=== PATIENT | female | born 1995 | race Caucasian/White ===

== ENCOUNTER 2023-08-17 00:39 | Outpatient (CLI) | payer MEDICAID, SELFPAY ==
[2023-08-17 01:15] VITALS: BP 133/79; PULSE 84
[2023-08-17 01:30] VITALS: RESP 16; TEMP 36.9
[2023-08-17 02:51] VITALS: BP 103/68; PULSE 75
[2023-08-17] MEDS: ACETAMINOPHEN 500 MG TABLET 1000 MG PO (02:56)
[2023-08-17] MEDS: hydrOXYzine pamoate 25 MG CAPSULE 100 MG PO (03:39)
--- NOTE | 2023-08-17 04:04 | PC.OBNST ---
NST Note NST Note Start: 08/17/23 00:48 Freq: ONCE Status: Active Protocol: Document 08/17/23 04:03 AM (Rec: 08/17/23 04:04 AM [id number]) NST Note 1 Para (# of births) 0 EDC 08/27/23 Gestational Age In Weeks & Days 38 Weeks & 4 Days Patient Presented with Complaint(s) of Contractions/cramping Reactive Yes Appropriate for Gestational Age Yes RN AMiner RNC Date 08/17/23 Reactive Yes Appropriate for Gestational Age Yes RN DCarlson RN Date 08/17/23 OB NST charge Yes Complete NST Note via Write Note Yes The provider's electronic signature indicates the NST is reactive/appropriate for gestational age. *Note to provider: If an addendum is required, open the patient's chart and click on the note under the Nurse/Allied Health tab.
--- NOTE | 2023-08-19 11:15 | PC.OBNST ---
NST Note NST Note Start: 08/17/23 00:48 Freq: ONCE Status: Discharge Protocol: Document 08/17/23 04:03 AM (Rec: 08/17/23 04:04 AM [id number]) NST Note 1 Para (# of births) 0 EDC 08/27/23 Gestational Age In Weeks & Days 38 Weeks & 4 Days Patient Presented with Complaint(s) of Contractions/cramping Reactive Yes Appropriate for Gestational Age Yes RN AMiner RNC Date 08/17/23 Reactive Yes Appropriate for Gestational Age Yes RN DCarlson RN Date 08/17/23 OB NST charge Yes Complete NST Note via Write Note Yes The provider's electronic signature indicates the NST is reactive/appropriate for gestational age. *Note to provider: If an addendum is required, open the patient's chart and click on the note under the Nurse/Allied Health tab.
== END 2023-08-17 03:45 | disposition home or self-care (01) ==
LOC: OB OUT 00:40 → OB 00:41
PROVIDERS: PCP Physician Assistant; Visit Provider Family Medicine
DX: O47.1 False labor at or after 37 completed weeks of gestation (principal); Z3A.38 38 weeks gestation of pregnancy
CPT/HCPCS: 59025; G0463; A9270

== ENCOUNTER 2023-08-19 00:36 | Inpatient (IN) | payer MEDICAID, SELFPAY ==
[2023-08-19] VITALS (19 sets, daily range): BP systolic 106–140; BP diastolic 67–85; PULSE 68–95; RESP 16–17; TEMP 36.4–36.9; O2SAT 96–100
[2023-08-19] MEDS: OXYTOCIN 30 unit/500 ML in NS 30 UNIT/500 ML BAG 300 UNIT IVPB (01:57)
[2023-08-19] MEDS: LIDOCAINE 1 % PF 30 ML INJECTION (01:58)
--- NOTE | 2023-08-19 02:25 | P.OBCN_ITS ---
OB - CN: HPI Date of Consult Time Seen by Provider: : Date Seen: 08/19/23 Patient: Esa Patient Consult date: 08/19/23 Requesting Physician: Justine Mendoza DO Primary Care Provider: COLE Loving Consult Narrative Narrative: Marcia is a 28 year old G 1 P 0 at 38.6 weeks gestation that was admitted to the [facility] on 08/19/23 for spontaneous labor. She had a spontaneous vaginal delivery complicated by a 4th degree laceration. I was consulted for laceration repair. History History 1 Elective abortions Para 1 Spontaneous abortions Hx # Term Pregnancies Ectopic pregnancies Hx # Pregnancies Multiple births Number of Living Children 0 Labs GBS status: negative OB Labs: Lab Assessment Start: 08/19/23 00:06 Freq: ONCE Status: Complete Protocol: PC.OBGBS Activity Type Activity Date Activity User E-sign Co-sign Detail Recorded Client Recorded Date Recorded By Document 08/19/23 00:43 MMT [id number] 08/19/23 00:48 MMT 08/19/23 00:43 Lab Assessment GBS Status negative GBS Additional Criteria None Is Patient Allergic to Penicillin? No Treatment Required OK Are Labs Available Yes Maternal Blood Type A Maternal RH Factor Negative Evaluate Maternal Rubella Immune Status Immune Hepatitis B Surface Antigen Negative Maternal HIV Status Negative Maternal Syphillis (RPR) Status Negative [facility] Medical History (Updated 08/19/23 @ 02:57 by Justine Mendoza DO) Vitamin D deficiency ?E55.9 - Vitamin D deficiency, unspecified (ICD-10) Wernicke encephalopathy ?E51.2 - Wernicke's encephalopathy (ICD-10) Thiamine deficiency ?E51.9 - Thiamine deficiency, unspecified (ICD-10) PCOS (polycystic ovarian syndrome) ?E28.2 - Polycystic ovarian syndrome (ICD-10) NAFLD (nonalcoholic fatty liver disease) ?K76.0 - Fatty (change of) liver, not elsewhere classified (ICD-10) Reflux gastritis ?K29.60 - Other gastritis without bleeding (ICD-10) Surgical History (Updated 08/19/23 @ 02:52 by Justine Mendoza DO) Hx laparoscopic cholecystectomy ?Z90.49 - Acquired absence of other specified parts of digestive tract (ICD- 10) H/O gastric bypass ?Z98.84 - Bariatric surgery status (ICD-10) Social History What is your current living situation?: I presently have a place to live Problems where you live: no known problems In the past 12 months, utilities in danger of being shut off: no In past 12 months, lack of transportation kept you from medical appts, meetings, work, or getting things needed for daily living: no In the past 12 mos, have been you worried that your food would run out before you had money to buy more?: never true In the past 12 mos, the food you bought just didn't last and you didn't have money to buy more?: never true Smoking Status: Never smoker How often does anyone, including family, friends and others, physically hurt you : never How often does anyone, including family, friends and others, insult or talk down to you: never How often does anyone, including family, friends and others, threaten you with harm: never How often does anyone, including family, friends and others, scream or curse at you: never Meds Home Medications and Allergies Home Medications Medication Instructions Recorded Confirmed Type calcium citrate malate-vitamin D3 3 tab PO DAILY 08/17/23 08/17/23 History 500 mg-200 unit tablet ferrous sulfate 325 mg (65 mg 325 mg PO DAILY 08/17/23 08/17/23 History iron) tablet (Feosol) multivitamin no.47-iron fum 27 1 cap PO DAILY 08/17/23 08/17/23 History mg-folate no.1 1 mg-dha 300 mg capsule (PNV-DHA) vitamin B12 1,000 mcg-folic acid 1 tab sublingual DAILY 08/17/23 08/17/23 History 400 mcg sublingual tablet Allergies Allergy/AdvReac Type Severity Reaction Status Date / Time ibuprofen Allergy Unknown Verified 07/14/22 18:51 OB - H&P: Exam Physical Exam: Vital signs: Temp Pulse BP Pulse Ox 98.2 F 76 140/75 H 100 08/19/23 00:16 08/19/23 02:19 08/19/23 02:19 08/19/23 01:38 Narrative: Physical exam: General: No acute distress. Nursing Psych: Alert and oriented x3, full affect HEENT: Normocephalic, atraumatic Lungs: Unlabored breathing Neuro: No focal deficit. Mentating appropriately Pelvic exam: Bedside exam showed obvious 4th degree laceration extending appro ximately 4-5 cm into the rectum. Stool present in the wound. Minimal bleeding noted. Deferred rest of exam to the OR. OB - CN: A/P Assessment and Plan (1) Fourth degree laceration of perineum during delivery, : Status: Acute Plan - 4th degree laceration after spontaneous vaginal delivery - Counseled patient on her laceration, postoperative course and expectations. Advised strict bowel regimen, avoidance of constipation/diarrhea and chronic cough to reduce potential complications such wound infection, breakdown, hematoma or incomplete healing. These complications can lead to morbidity such as pain, fistula, and fecal/anal incontinence. - Will repair in the OR as copious amount irrigation and extensive repair required. - Preoperative antibiotic: 2g of cefoxitin - Postoperative care recommendations - Bowel regimen: Miralax QD, Senna BID, Simethicone Q4H PRN. Continue bowel regimen for 6-8 weeks depending level of constipation. Avoid straining, constipation or diarrhea. Avoid siting on toilet for more than 10 mins. Patient has chronic anemia. Will treat with IV iron to avoid constipation from PO iron. - Wound care: recommend rinsing with warm water using astrid-care bottle and wiping with unscented wet wipes/clean towel after voids and bowel movements. Pat clean and dry. Do not rub. Avoid using toilet paper that can break off and stick to wound. Patient is so she will be hypoestrogenic. She can apply Premarin cream 2x per week at night vaginal and on perineal wound. - Pain: 1000 mg of acetaminophen q.6 hours PRN, oxycodone 5 mg q.6 hours PRN, Dermoplast spray PRN, perineal ice pack PRN. Sitz baths BID x 2 weeks, then PRN. Patient canno take NSAIDs due to gastric bypass surgery.
--- NOTE | 2023-08-19 02:26 | P.GYNPRC_ITS ---
Procedure Note Time Seen by Provider: : Date of procedure: 08/19/23 Pre-op diagnosis: Fourth degree laceration after spontaneous vaginal delivery Post-op diagnosis: same Procedure: 1. Exam under anesthesia 2. Fourth degree laceration repair Anesthesia: regional (Spinal) Complications: None Surgeon: Iliana Blount MD Estimated blood loss (mL): 50 Urine Output (mL): 50 Pathology: none sent Condition: stable Disposition: floor Findings: Fourth degree laceration was 5 cm. Second-degree laceration was approximately 7 cm. Normal cervix without laceration. Fundus was firm and 2 cm below the umbilicus. Rectal exam performed at the start of the procedure and no other occult fourth degree laceration identified. Procedure Description: Prophylactic antibiotic, 2g of cefoxitin, was given before patient was taken to OR. After arrival to the operating room patient was placed in the dorsal l ithotomy position after administration of spinal anesthesia. 2.5 L of sterile normal saline irrigation was used to clean stool out of the rectum and vaginal laceration prior to prepping. Rectal exam performed to confirm tear and to assess for any other occult injuries. The rectal mucosa was torn about 5 cm, the internal and external anal sphincter were identified and noted to be completely avulsed. Operators? gloves changed and vagina prepped with betadine and she was draped in a sterile manner. Straight catheterization was used to drain her bladder. Attention was then turned towards the repair. Repair of the mucosa is performed 1st with 3-0 Monocryl in a continuous running manner. After the mucosa has been reapproximated, digital rectal exam performed to ensure adequate strength and integrity of the repair. Telephone Sales Agent's gloves changed. All instruments used for the repair of the mucosa were replaced with new sterile instruments. Next the identification and repair of the internal anal sphincter was performed via end-to-end reanastomosis using 3-0 PDS in a continuous running manner. Another rectal exam was performed to reassured integrity and strength of the repair. Telephone Sales Agent's gloves changed. Attention was then turned to the anal sphincter. Aimee clamps were placed on the disrupted edges, and 0 vicryl used to reapproximate the sphincter in an interrupted fashion with four stitches. Before these were tied down a rectal exam confirmed no retained sutures in the rectum and good sphincter tone with tightening of the sutures. Additional deep stitches were placed proximal to the sphincter to provide for a more substantial perineal body. The remainder of the tear was repaired as a typical 2nd degree laceration with a running 2-0 vicryl stitch. Vaginal packing with Premarin placed at the end of the procedure. This is to be removed in 12 hours. Excellent hemostasis noted. The patient tolerated the procedure well. Sponge, lap and instruments counts were correct at the end of the procedure. Surgical debris performed. Following the repair, she was counseled on the procedure and precautions for return to care. Strong bowel regimen instructions reviewed. Mom and baby doing well in recovery.
[2023-08-19] MEDS: LACTATED RINGERS 1000 ML 1,000 ML 125 ML IV (02:30)
--- NOTE | 2023-08-19 02:36 | PM.OBHPLI ---
OB - H&P: HPI Labor/Induction History of Present Illness Time Seen by Provider: 00:55 Date Seen: 08/19/23 Chief Complaint: The patient is a 28 year old 1 para 0 at 38 6/7 weeks gestation by LMP c/w 8wkUS, who presents with contractions Chief complaint: Maternity : 1 Para: 0 Date of last menstrual period: 11/20/22 Estimated date of delivery: 08/27/23 Gestational age based on last menstrual period: 38 Narrative: Marcia Martínez is a 28 year old 1 para 0 at 38 6/7 weeks gestation by LMP c/w 8wkUS, who presents with contractions in active labor. Pt reports ctxs started at around 9:30pm. She presented at 0011 and RN checked shortly after arrival and found to be 8cm. No LOF. pt was 5cm and not lisseth this morning at appointment. Besides current labor, pt reports feeling well. no recent illness. 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 Additional followup US 06/10/23 with clubbed feet and mild polyhydramnios. Had US's for HORTENSIA [id number] since then with normal amniotic fluid and no further polyhydramnios including normal HORTENSIA this morning. complications comment: see above US note Medical complications: other (history gastric bypass, had gastric bypass labs each trimester and growth US ) Labs Blood type: A (-) negative Rubella: immune RPR/VDLR: nonreactive GBS status: negative HBsAG: negative Meds Home Medications and Allergies Home Medications Medication Instructions Recorded Confirmed Type calcium citrate malate-vitamin D3 3 tab PO DAILY 08/17/23 08/17/23 History 500 mg-200 unit tablet ferrous sulfate 325 mg (65 mg 325 mg PO DAILY 08/17/23 08/17/23 History iron) tablet (Feosol) multivitamin no.47-iron fum 27 1 cap PO DAILY 08/17/23 08/17/23 History mg-folate no.1 1 mg-dha 300 mg capsule (PNV-DHA) vitamin B12 1,000 mcg-folic acid 1 tab sublingual DAILY 08/17/23 08/17/23 History 400 mcg sublingual tablet Allergies Allergy/AdvReac Type Severity Reaction Status Date / Time ibuprofen Allergy Unknown Verified 07/14/22 18:51 OB - H&P: Exam Physical Exam: Vital signs: Temp Pulse BP Pulse Ox 98.2 F 72 135/81 100 08/19/23 00:16 08/19/23 02:34 08/19/23 02:34 08/19/23 01:38 Constitutional: Constitutional: no acute distress (comfortable between contractions, breathing through contractions) Routine HEENT Exam: Head: Present normal inspection Eye: Present normal appearance ENT: Present mucous membranes moist Routine Respiratory Exam: Respiratory: Present CTA bilaterally Routine Cardiovascular Exam: Cardiovascular: RRR Routine Abdominal Exam: Comments: gravid Detailed Labor and Delivery Exam: Patient Gravid: Yes Dilation (cm): 9 Effacement (%): 100 Cervix position: anterior Consistency: soft Contraction frequency (min): 2 Fetus (Single): Station: 0 Amniotic Membrane Status: intact Heart Rate Baseline: 150 Monitor Accelerations: Present Monitor Decelerations: Early Jail Variability: Moderate (6-25) OB - Problem Based A/P Additional Plan (1) Term : Status: Acute (2) Active labor: Status: Acute Plan On my arrival, FHT reactive. As we are talking about labor and what to expect, has decel after contraction. RN's turn pt to left side and we are unable to find FHT's. I checked pt and she is 9.5cm, intact with amniotic sac tight to head. scalp monitor placed causing AROM without significant fluid return. Scalp monitor did not draft roller picker FHT well so RN continued find with external monitor and was able to get FHT's which were in normal range and double checked and not maternal. Known GBS negative. continue with expectant mgmt. Delivery/Labor/Induction Plan Plan: expectant management
[2023-08-19] MEDS: cefOXitin 2 GM in 0.9 % SODIUM CHLORIDE Mini-bag 100 ML IVPB (02:45)
--- NOTE | 2023-08-19 03:02 | W.PM.VAGD1_ITS ---
Procedure Delivery date: 08/19/23 Procedure Done: Global Procedure Details: The patient is a 28 year-old admitted on 08/19/23 at 38 Weeks, 7 Days gestation for active labor.? Cervical exam on admission was 8 cm/100 % effaced/0 station with membranes intact in vertex presentation.? Contractions were every 2-3 minutes.? heart rate demonstrated baseline 150 bpm with moderate variability, + accelerations, +early decelerations; a category 1 tracing.? AROM occurred at 0101 when scalp placed without significant fluid return. ? Labor Analgesia:? None ? Pitocin:? No ? Labor onset:? 2129 on 08/18/23 ? Complete:? 0123 ? Pushing:? 0140 ? heart tones during second stage were 150's, moderate variability with decels with/after pushing down to 70-90's with return to 150's between contractions. ? At 0140 a viable male infant delivered in vertex presentation over intact perineum via spontaneous vaginal delivery.? Infant was placed on maternal abdomen.? Cord was clamped and cut after a 60 second delay.? Nose and mouth were bulb suctioned.? weight 7#15oz? 8 at 1 minute and 9 at 5 minutes.? Shoulder dystocia: no.? Nuchal cord: no. ? Active management of placenta performed. Placenta delivered spontaneously and complete at 0145 with a 3 vessel cord. P lacenta was meconium stained. ? Mother and infant were stable after delivery. ? Lacerations:? 4th degree, OB surgeon Dr Blount called in to repair is currently repairing in OR. See her note for details. ? Blood loss: 200 mL. Blood loss measurement type: EBL ? 1 Sponge was packed in vagina by Dr Blount to take to OR, remaining sponge and needles counts are correct from delivery Procedures Operation Date: 08/19/23 03:10 Actual Procedure Side Surgeon p Vaginal Laceration Repair Iliana Doug Blount MD Route of delivery: Laceration description: Perineal - 4th Degree Estimated blood loss (mL): 200 [place] Infant Gender: Male presentation: vertex Placental Delivery Description: Spontaneous Cord Description: 3 Vessels
--- NOTE | 2023-08-19 03:31 | W.ANESCHARGE ---
Anesthesia Charges Start Date/Time Anesthesia Start Date: 08/19/23 Anesthesia Start Time: 02:56 Stop Date/Time Anesthesia Stop Date: 08/19/23 Anesthesia Stop Time: 04:52 Summary Emergency: SET UP [employer] MACHINES
[2023-08-19] MEDS: LIDOCAINE 1% MDV 20 ML INJECTION (04:40)
--- NOTE | 2023-08-19 04:52 | SUR.OPER ---
OB RN AWARE OF VAGINAL PACKING BEFORE THE PATIENT LEFT THE OR.
[2023-08-19] MEDS: ACETAMINOPHEN 500 MG TABLET 1000 MG PO ×2 (06:33→17:56)
[2023-08-19] MEDS: SENNOSIDES 1 TAB TABLET PO ×2 (09:10→20:24)
[2023-08-19] MEDS: polyethylene glycoL 3350 17 GM PACK PO (09:10)
--- NOTE | 2023-08-19 15:54 | PM.OBPNVD1 ---
OB - PN:Subj Subjective Time Seen by Provider: 10:45 Date Seen: 08/19/23 Interval history: I received a request to come see the patient because when she went to the bathroom, approximately 6 in of the vaginal packing came out of the vagina. She was otherwise doing well. She denied excessive vaginal bleeding or pain. OB - PN: Obj Exam Physical Exam: Vital signs: Temp Pulse Resp BP Pulse Ox O2 Del Method 98.4 F 82 16 106/71 96 Room Air 08/19/23 15:37 08/19/23 15:37 08/19/23 15:37 08/19/23 15:37 08/19/23 15:37 08/19/23 15:37 Narrative: Examination, I found approximately 6 in of the vaginal packing material to be extruding from the vagina. With patient's verbal consent, the vaginal packing was removed. There was no active bleeding noted following the removal. Urinary Catheter Management: Straight: Cath placed during this visit: yes Urethral indwelling: No Insertion date: 08/19/23 Insertion time: 04:00 OB - PN: A/P Delivery Assessment and Plan (1) Fourth degree laceration of perineum during delivery, : Status: Acute Plan Vaginal packing removed without difficulty. Recommend twice daily stool softener. Plan day: 0 Plan: routine care
[2023-08-20 02:15] VITALS: BP 131/85; PULSE 76; RESP 16; TEMP 36.6; O2SAT 98
[2023-08-20 06:10] LABS: Hemoglobin* 11.9 gm/dL (12.0-16.0)
--- NOTE | 2023-08-20 08:07 | PM.OBPNVD1 ---
OB - PN:Subj Subjective Time Seen by Provider: 08:07 Date Seen: 08/20/23 Interval history: pt seen in routine rounds. Doing well. ambulating well. reports no pain. no needing oxycodone for last 24 hours. only taking tylenol. Voiding. tolerating orals. has not had bm. received miralax yesterday morning, due this morning again. on senna bid as well. Lochia scant. Has decided to bottlefeed. Would like to go home today. Patient comments OB post-: no complaints, pain well controlled and tolerating diet status: bottle and doing well feeding status: exclusively bottle feeding OB - PN: Obj Exam Physical Exam: Vital signs: Temp Pulse Resp BP Pulse Ox O2 Del Method 97.8 F 76 16 131/85 98 Room Air 08/20/23 02:15 08/20/23 02:15 08/20/23 02:15 08/20/23 02:15 08/20/23 02:15 08/20/23 02:15 Constitutional: Constitutional: no acute distress Routine HEENT Exam: Head: Present normal inspection Eye: Present normal appearance ENT: Present mucous membranes moist Routine Abdominal Exam: Fundus: Present firm Urinary Catheter Management: Straight: Cath placed during this visit: yes Urethral indwelling: No Insertion date: 08/19/23 Insertion time: 04:00 OB - PN: Obj Data Labs Labs: Laboratory Results - last 24 hr 08/20/23 06:00 Hgb 11.9 L OB - PN: A/P Delivery Assessment and Plan (1) Fourth degree laceration of perineum during delivery, : Status: Acute Assessment and Plan: Dr Blount repaired and recommendations as followed. I again reviewed with pt today: Postoperative care recommendations - Bowel regimen: Miralax QD, Senna BID x 2 weeks then senna bid. Continue bowel regimen for 6-8 weeks depending level of constipation. Avoid straining, constipation or diarrhea. Avoid siting on toilet for more than 10 mins. 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 Will treat with IV iron to avoid constipation from PO iron. discsused with pt, not take her oral iron for next 3 months. - Wound care: recommend rinsing with warm water using astrid-care bottle and wiping with unscented wet wipes/clean towel after voids and bowel movements. Pat clean and dry. Do not rub. - Pain: 1000 mg of acetaminophen q.6 hours PRN, Dermoplast spray PRN, perineal ice pack PRN. Sitz baths BID x 2 weeks, then PRN. Patient cannot take NSAIDs due to gastric bypass surgery. pt is aware. not needing oxycodone. She will followup with Dr Blount in 6-8weeks for complete vaginal/rectal exam and discussed with patient Plan Plan: routine care Comments: Routine care except as above due to 4th degree laceration. needs bm prior to d/c per Dr Blount. discussed with pt. Is doing really well otherwise and will plan d/c later today if bm.
[2023-08-20 08:15] VITALS: BP 119/75; PULSE 70; RESP 15; TEMP 36.8; O2SAT 98
[2023-08-20] MEDS: polyethylene glycoL 3350 17 GM PACK PO (08:25)
[2023-08-20] MEDS: SENNOSIDES 1 TAB TABLET PO (08:25)
[2023-08-20 11:00] VITALS: BP 108/72; PULSE 88; RESP 18; TEMP 36.6; O2SAT 99
[2023-08-20 16:15] VITALS: BP 124/81; PULSE 80; RESP 18; TEMP 36.7; O2SAT 96
--- NOTE | 2023-08-20 17:54 | PM.OBDSVD1 ---
DS: Providers Provider Time Seen by Provider: 07:30 Date Seen: 08/20/23 Date of admission: 08/19/23 00:36 Primary care physician: COLE Loving Admitting Clinician: Justine Mendoza DO Consults: Dr Bolunt, OB surgeon for repair of 4th degree perineal laceration Attending Physician on discharge: Justine Mendoza DO Date of Discharge: 08/20/23 DS: Diagnosis Discharge Diagnosis (1) Fourth degree laceration of perineum during delivery, : Status: Acute Problem details: Dr Blount repaired and recommendations as followed. I again reviewed with pt today: Postoperative care recommendations - Bowel regimen: Miralax QD, Senna BID x 2 weeks then senna bid. Continue bowel regimen for 6-8 weeks depending level of constipation. Avoid straining, constipation or diarrhea. Avoid siting on toilet for more than 10 mins. 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 Will treat with IV iron to avoid constipation from PO iron. discsused with pt, not take her oral iron for next 3 months. - Wound care: recommend rinsing with warm water using astrid-care bottle and wiping with unscented wet wipes/clean towel after voids and bowel movements. Pat clean and dry. Do not rub. - Pain: 1000 mg of acetaminophen q.6 hours PRN, Dermoplast spray PRN, perineal ice pack PRN. Sitz baths BID x 2 weeks, then PRN. Patient cannot take NSAIDs due to gastric bypass surgery. pt is aware. not needing oxycodone. She will followup with Dr Blount in 6-8weeks for complete vaginal/rectal exam and discussed with patient (2) (normal spontaneous vaginal delivery): Status: Acute Problem details: Doing well . Bottle feeding. Ambulating, voiding, tolerating orals. Not requiring any oxycodone. Would like to go home today. OB surgeon on today noted okay to go home without bm. She has good bowel regimen in place. pt doing well /post repair. Plan d/c home with followup Thursday, follow up sooner if needed. Exam Const: Vital Signs, click to edit/add: Vital Signs - 24 hr 08/19/23 20:08 08/20/23 02:15 08/20/23 08:15 Temperature 98.1 F 97.8 F 98.2 F Pulse Rate Pulse Rate [Pulse Oximeter] 71 76 70 Respiratory Rate 16 16 15 Blood Pressure Blood Pressure [Le ft Arm] 108/68 131/85 119/75 Pulse Oximetry 97 98 98 Oxygen Delivery Me thod Room Air Room Air Room Air 08/20/23 11:00 08/20/23 16:15 Temperature 97.8 F 98.1 F Pulse Rate 88 Pulse Rate [Pulse Oximeter] 80 Respiratory Rate 18 18 Blood Pressure 108/72 Blood Pressure [Le ft Arm] 124/81 Pulse Oximetry 99 96 Oxygen Delivery Me thod Room Air Common normals: no apparent distress, healthy appearing, alert and well nourished : Uterus: firm Neuro: Sensorium/orientation: alert OB - DS: Summary Hospital Course Hospital Course: The patient is a 28 year old G 1 P 0 at 38 6/7 weeks gestation that was admitted to the Center on 08/19/23 for active labor. She had a vaginal delivery complicated by 4th degree laceration. Dr Blount was consult for 4th degree laceration repair--see her note for details. She delivered a viable male infant. She is bottle feeding. the patient has done well. She did receive an iron infusion due to her history iron deficiency anemia related prior gastric bypass so that she would not need to take iron for the next 2-3 months while 4th degree laceration is healing. Peripartum Data delivery method: Vaginal Laceration description: Perineal - 4th Degree Procedures: Procedures Operation Date: 08/19/23 03:10 Actual Procedure Side Surgeon p Vaginal Laceration Repair Iliana Blount MD complications: none [place] Infant Gender: Male Infant Discharge Plan: Home Time Spent with Patient Time attestation: Total time spent providing and/or coordinating discharge services: Discharge Plan Discharge Disposition: Home, Self-Care Date of Admission: 08/19/23 00:36 Attending Provider on Discharge: Justine Mendoza Primary Care Provider: Chinyere Pulido Condition: Stable Anticipated Discharge Date/Time: 08/20/23 18:06 Discharge Medications: New sennosides [Senna Lax] 8.6 mg Tablet 8.6 mg PO BID Qty: 180 0RF Rx Instructions: take bid x 2 weeks then decrease to daily polyethylene glycol 3350 [Miralax] 17 gram Powder In Packet 17 g PO DAILY Qty: 100 0RF Dermoplast (with menthol) 20-0.5 % Aerosol 1 spray topical QID PRNQty: 85 0RF acetaminophen 500 mg Tablet 1,000 mg PO Q6H PRNQty: 60 0RF Continued calcium citrate malate-vit D3 500-200 mg-unit tablet 3 tab PO DAILY vitamin O07-cktna acid 1,000-400 mcg tablet, sublingual 1 tab sublingual DAILY Discontinued PNV-DHA 27 mg iron-1 mg -300 mg capsule 1 cap PO DAILY ferrous sulfate [Feosol] 325 mg (65 mg iron) tablet 325 mg PO DAILY Discharge Orders: Discharge Order (Routine); Ordered 08/20/23 Ordered By: Justine Mendoza Patient Education: OB Vaginal/Bottle Feeding Additional Instructions: - Bowel regimen: Miralax QD, Senna BID x 2 weeks then senna bid. Continue bowel regimen for 6-8 weeks depending level of constipation. Avoid straining, constipation or diarrhea. Avoid siting on toilet for more than 10 mins. - Wound care: recommend rinsing with warm water using astrid-care bottle and wiping with unscented wet wipes/clean towel after voids and bowel movements. Pat clean and dry. Do not rub. - Pain: 1000 mg of acetaminophen q.6 hours PRN, Dermoplast spray PRN, perineal ice pack PRN. Sitz baths BID x 2 weeks, then PRN. MAKE followup appointment with Dr Blount ([facility]) in 6-8weeks for complete vaginal/rectal exam. Follow up with Dr Mendoza this Thursday as scheduled and also at 6weeks for routine visit. Follow Up Appointments: Chinyere Pulido PA [Primary Care Provider] - Justine Mendoza DO [Staff Physician] - (Thursday as scheduled) [facility]: [facility] Info Instructions
[2023-08-21 06:42] LABS: Rapid Plasma Reagin (RPR) Non Reactive (Non Reactive)
== END 2023-08-20 18:30 | disposition home or self-care (01) | DRG 560 ==
LOC: OB OUT 00:37 → OB 00:37
PROVIDERS: Obstetrics & Gynecology; Admitting Provider Family Medicine; PCP Physician Assistant; Visit Provider Family Medicine
PROC: 0UQG0ZZ Repair Vagina, Open Approach (ICD-10-PCS; principal; 2023-08-19 03:00)
DX: O40.3XX0 Polyhydramnios, third trimester, not applicable or unspecified (principal); O70.3 Fourth degree perineal laceration during delivery; Z86.2 Personal history of diseases of the blood and blood-forming organs and certain disorders involving the immune mechanism; O99.844 Bariatric surgery status complicating childbirth; Z3A.38 38 weeks gestation of pregnancy; Z37.0 Single live birth
CPT/HCPCS: 00400; 36415; 85018; 85461; 86592; 99140; A9270; J0694; J2001; J2250; J2704; J2791; J7120

== ENCOUNTER 2023-12-29 19:19 | Emergency (ER) | payer MEDICAID, SELFPAY ==
--- NOTE | 2023-12-29 19:21 | ED_ITS ---
HPI - General Adult General Date Seen: 12/29/23 Chief complaint: Unspecified Complaint, Adult Stated complaint: fainted on MED/Surg floor Time Seen by Provider: 12/29/23 19:20 History of Present Illness HPI narrative: 28-year-old female who is brought to the ER today by nursing staff from the medical-surgical floor here. She is accompanied by her . History is obtained in part from the patient, he in part from her , and in part from Med surge staff. She has a past medical history of previous gastric bypass, vitamin-B deficiency, anemia, GERD, PCOS. She reports that she has a history of syncopal events in the past associated with dehydration and when she got into the hot bathtub. She has been having trouble with these ever since she had her gastric bypass surgery. She had a baby in August who is now 4-month-old and doing well. 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 She has been in her usual state of health lately. No recent illness, vomiting, diarrhea, fever, cough, or other illness. She was visiting her mother today. Her mother is on the medical/surgical floor recovering from knee surgery. The visit was going well. Her mother's doing well and there was nothing distressing or dramatic occurring in the visit. She had been visiting in her mother's room for about fiber 10 minutes. She was sitting on the window sill when she abruptly started to feel very tired and weak. After that she does not remember anything. She does not recall any chest pain, palpitations, headache, or other symptoms prior to losing consciousness. Her was with her and he saw her fall from the window sill which was fairly close to the floor and land. She hit her head on the window she will as she fell down. As she landed on the floor she had about a 12nd episode of son convulsion like activity affecting her arms and legs. After this her convulsions stopped and she regained consciousness. He says she was him back to normal right away. She did not bite her tongue. She did not urinate on herself. He is to since awaking up she was initially a bit sweaty but had normal mental status. She denies any chest pain. No palpitations. No shortness of breath. No abdominal pain or back pain. She does not think she is . He Staff from the medical floor responded. Blood pressure was stable in the 140 's systolic. They brought her here to the ER for evaluation. Now that she is here she says she is feeling back to normal. She is anxious/ worried. She did hit her head but does not have a hermann on her head. She has a mild headache. Related Data Home Medications ?Medication ?Instructions ?Recorded ?Confirmed calcium citrate malate-vitamin D3 3 tab PO DAILY 08/17/23 10/21/23 500 mg-200 unit tablet vitamin B12 1,000 mcg-folic acid 1 tab sublingual DAILY 08/17/23 10/21/23 400 mcg sublingual tablet Allergies Allergy/AdvReac Type Severity Reaction Status Date / Time adhesive Allergy Mild Rash Verified 10/21/23 15:06 ibuprofen Allergy Unknown Verified 10/21/23 15:06 NSAIDS (Non-Steroidal Allergy Unknown Unknown Verified 10/21/23 15:06 Anti-Inflamma [facility] Medical History (Updated 12/29/23 @ 21:07 by Shawn Araujo MD) (normal spontaneous vaginal delivery) (08/19/23) ?O80 - Encounter for full-term uncomplicated delivery (ICD-10) Fourth degree laceration of perineum during delivery, (08/19/23) ?O70.3 - Fourth degree perineal laceration during delivery (ICD-10) Vitamin D deficiency ?E55.9 - Vitamin D deficiency, unspecified (ICD-10) Wernicke encephalopathy (06/22/19) ?E51.2 - Wernicke's encephalopathy (ICD-10) Thiamine deficiency ?E51.9 - Thiamine deficiency, unspecified (ICD-10) Surgical History (Updated 10/16/23 @ 10:27 by Xiomara Fraser) History of esophageal dilatation (2019) ?Z98.890 - Other specified postprocedural states (ICD-10) 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) ?Z98.84 - Bariatric surgery status (ICD-10) History of tracheostomy ?Z98.890 - Other specified postprocedural states (ICD-10) History of Francesca fundoplication ?Z98.890 - Other specified postprocedural states (ICD-10) History of lipoma ?Z86.018 - Personal history of other benign neoplasm (ICD-10) History of foot surgery (09/29/12) ?Z98.890 - Other specified postprocedural states (ICD-10) Hx laparoscopic cholecystectomy ?Z90.49 - Acquired absence of other specified parts of digestive tract (ICD- 10) Social History What is your current living situation?: I presently have a place to live Problems where you live: no known problems In the past 12 months, utilities in danger of being shut off: no In past 12 months, lack of transportation kept you from medical appts, meetings, work, or getting things needed for daily living: no In the past 12 mos, have been you worried that your food would run out before you had money to buy more?: never true In the past 12 mos, the food you bought just didn't last and you didn't have m oney to buy more?: never true Smoking Status: Never smoker How often does anyone, including family, friends and others, physically hurt you : never How often does anyone, including family, friends and others, insult or talk down to you: never How often does anyone, including family, friends and others, threaten you with harm: never How often does anyone, including family, friends and others, scream or curse at you: never Exam Narrative: Exam Narrative: Constitutional: Appears well-developed and well-nourished. Alert. Conversant. Non toxic. HENT: Head: Atraumatic. No depressed skull fracture, Raccoon Eyes, Kim's sign, or hemotympanum. Face normal. TMs normal Nose: Nose normal. Mouth/Throat: Oral mucosa is clear and moist. no trismus. Tongue normal. No lacerations. Pharynx normal. Tonsils symmetric. No tonsillar enlargement, erythema, or exudate. Eyes: Conjunctivae normal. EOM normal. Pupils equal, round, and reactive to light. No scleral icterus. Neck: Normal range of motion. Neck supple. No tracheal deviation present. No posterior midline tenderness or step-off. Cardiovascular: Normal rate, regular rhythm. No gallop. No friction rub. No murmur heard. Symmetric radial artery pulses Pulmonary/Chest: Effort normal. No stridor. No respiratory distress. No wheezes. No rales. No rhonchi . No tenderness. Abdominal: Soft. Bowel sounds normal. No distension. No mass. No tenderness. No rebound. No guarding. No CVA tenderness. Musculoskeletal: RUE: Normal range of motion. No tenderness. No deformity LUE: Normal range of motion. No tenderness. No deformity RLE: Normal range of motion. No edema. No tenderness. No deformity LLE: Normal range of motion. No edema. No tenderness. No deformity Lymph: No cervical adenopathy. Neurological: Mental status normal. Attention normal. Alert and oriented x3. GCS 15. Memory normal. Speech fluent. Cognition normal. Cranial Nerves intact II-XII except I did not formally test gag or visual acuity. EOMI. Palate elevates symmetrically and tongue protrudes in the midline. Strength: 5/5 trapezius on the right and left 5/5 deltoid on the right and left 5/5 biceps on the right and left 5/5 triceps on the right and left 5/5 pile driver engineer on the right and left 5/5 thumb opposition on the right and le ft 5/5 finger abduction on the right and le ft 5/5 hip flexors (L3) on the right and le ft 5/5 quadriceps (L4) on the right and lef t 5/5 tibialis anterior on the right and l eft 5/5 EHL (L5) on the right and left 5/5 gastrocnemius (S1) on the right and left 5/5 hamstring on the right and left Sensation intact to light touch in both upper extremities (C4-T1) Sensation intact to light touch in Both lower extremities (L4-S1). Finger to nose and coordination normal. Skin: Skin is warm and dry. No rash noted. No pallor. Normal capillary refill. Psychiatric: She has dry tears around her eyes but is not currently crying or upset. Normal mood. Normal affect. Const: Vital Signs, click to edit/add: Vital Signs - 24 hr 12/29/23 19:29 Temperature 98.5 F Pulse Rate [Left P ulse Oximeter] 92 Respiratory Rate 16 Blood Pressure [Ri ght Upper Arm] 140/80 H Pulse Oximetry 99 Oxygen Delivery Me thod Room Air Course Course ED Course: Recheck-continues to feel well. Reevaluation(s) Reevaluation #1: Recheck-back from CT. Checking Facebook on her phone. Her father came to leaf size picker her child and is caring for her baby while she is getting a workup done. Reevaluation #2: Recheck-labs and urine are back reassuring. Discussed results with patient her . They are comfortable plan to discharge home. Vital Signs Vital signs: Initial Vital Signs Temperature 98.5 F 12/29/23 19:29 Temperature Source Temporal Artery Scan 12/29/23 19:29 Pulse Rate 92 12/29/23 19:29 Pulse Rhythm Regular 12/29/23 19:29 Respiratory Rate 16 12/29/23 19:29 Blood Pressure 140/80 H 12/29/23 19:29 Blood Pressure Mean 100 12/29/23 19:29 Blood Pressure Position Semi-Fowlers 12/29/23 19:29 Pulse Oximetry 99 12/29/23 19:29 Oxygen Delivery Method Room Air 12/29/23 19:29 Vital Signs Temperature 98.5 F 12/29/23 19:29 Pulse Rate 92 12/29/23 19:29 Respiratory Rate 16 12/29/23 19:29 Blood Pressure 140/80 H 12/29/23 19:29 Pulse Oximetry 99 12/29/23 19:29 Oxygen Delivery Method Room Air 12/29/23 19:29 Temperature 98.5 F 12/29/23 19:29 Pulse Rate 92 12/29/23 19:29 Respiratory Rate 16 12/29/23 19:29 Blood Pressure 140/80 H 12/29/23 19:29 Pulse Oximetry 99 12/29/23 19:29 Oxygen Delivery Method Room Air 12/29/23 19:29 Medications Administered Medications: Generic Name Dose Route Start Last Admin Trade Name Freq PRN Reason Stop Dose Admin Lactated Ringer's 1,000 ml 12/29/23 19:38 12/29/23 19:54 Lactated Ringers 1000 Ml IV 12/29/23 19:39 1,000 ml ONCE ONE Administration Medical Decision Making MDM Narrative Medical decision making narrative: This patient presents for evaluation of a an episode where she lost consciousness and fell off the window sill of her mother's hospital room. She did have a brief shaking event on the floor. Differential would include generalized tonic clonic seizure versus convulsive syncope. Presentation here not suggestive for psychogenic nonepileptic seizures. Suspect this was likely convulsive syncope rather than true seizures since it was not associated with any tongue biting, urinary incontinence and there was no postictal period. She did hit her head on the floor as she fell and has a mild headache now. Discussed with the patient and her that at this point workup would suggest this was a syncopal event not a seizure. However, if they have any further episodes of seizure or seizure-like activity in the future, they should return to the ER right away and will need workup and neurology referral. A broad differential was considered. History provided suggests a benign cause of syncope. No murmurs. Initial ECG shows normal sinus rhythm and no dysrhythmogenic abnormality such as WPW, prolonged QT, Brugada syndrome, and no ischemia. No symptoms/findings concerning for cardiac ischemia or ACS. No headache or other neurologic symptoms to suggest subarachnoid , stroke . case monitor while the patient here in the ER showed no dysrhythmia or ectopy. A broad differential diagnosis was considered including SVT, Atrial fibrillation, ventricular arrhythmia, thyroid disease, acute electrolyte abnormality, drugs/medications, medication side effect, anemia, heart disease, PE, among others. She is not . No abdominal pain or back pain to suggest internal bleeding. She is mildly anemic with a hemoglobin 11.2. Baseline is 11.9. 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 She will follow-up with her doctor for recheck and further vitamin levels. She does have a history of syncope happening a few times since she had her gastric bypass surgery, apparently related to malnourished mint and vitamin deficiencies. The workup and exam here in ED shows low risk for dangerous cause of the patient's syncope, and no risks factors to warrant admission. Clinical judgement suggests that supportive outpatient management is indicated. Recommend follow up with. Head CT is negative. She is not having any neck pain. No distracting injuries or focal deficits . No signs of intoxication. I am able to clear her C-spine by nexus criteria. No other exam evidence for traumatic injury from falling. The remainder of her head or traumas am is negative. Questions answered and return precautions given Lab Data Labs: Lab Results 12/29/23 12/29/23 Range/Units 19:50 20:20 WBC 6.26 (4.50-11.00) K/uL RBC 4.22 (4.00-5.20) m/uL Hgb 11.2 L (12.0-16.0) gm/dL Hct 34.8 (33.0-51.0) % MCV 83 (80-100) fL MCH 27 (26-34) pg MCHC 32 (32-36) gm/dL RDW Coeff of Virgen 12.6 (11.5-15.5) % Plt Count 321 (140-440) K/uL Neut % (Auto) 48.4 (42.0-72.0) % Lymph % (Auto) 39.9 (20-44) % [place] % (Auto) 10.1 (0.0-11.0) % Eos % (Auto) 1.0 (0.0-7.0) % Baso % (Auto) 0.6 (0.0-3.0) % Neut # (Auto) 3.03 (1.7-7.0) K/uL Lymph # (Auto) 2.50 (0.90-2.90) K/uL [place] # (Auto) 0.60 (0.00-0.90) K/UL Eos # (Auto) 0.06 (0.00-0.50) K/uL Baso # (Auto) 0.04 (0.00-0.30) K/uL Abs Immat Gran (auto) 0.00 (0.00-0.30) K/uL Imm/Tot Granulo (auto) 0.0 % Sodium 138 (135-149) mmol/L Potassium 3.6 (3.6-5.1) mmol/L Chloride 107 (96-114) mmol/L Carbon Dioxide 22 (20-32) mmol/L Anion Gap 9 (7-15) mEq/L BUN 11 (5-24) mg/dL Creatinine 0.7 (0.5-1.5) mg/dL Estimated Creat Clear 109.59 Estimated GFR 122 ml/min Glucose 99 (60-115) mg/dL Calcium 8.8 (8.4-10.6) mg/dL Troponin I < 0.01 L (0.01-0.04) ng/mL HCG, Qual Negative (Negative) Urine Color Yellow (Yellow) Urine Appearance Clear (Clear) Urine pH 6.0 (5.0-8.5) Ur Specific [place] 1.025 (1.000-1.030) Urine Protein Negative (Negative) Urine Glucose (UA) Negative (Negative) Urine Ketones Negative (Negative) Urine Blood Negative (Negative) Urine Nitrite Negative (Negative) Urine Bilirubin Negative (Negative) Urine Urobilinogen 0.2 (0.2-1.0) Ur Leukocyte Esterase Trace A (Negative) Urine RBC 2-5 A (0-2) Urine WBC 2-5 (0-5) Ur Squamous Epith Cells Few (None-Few) Urine Bacteria Moderate A (None) Imaging Data CT scan - head: Attestation: I have reviewed the pertinent imaging results. Radiologist's impression: Impression: No acute intracranial process. ECG Data Attestation: I personally reviewed and interpreted this ECG as follows: Interpretation: Normal sinus rhythm Rate: 90 ND: 172 QRS axis: Normal axis. No pathologic Q-waves. No delta waves ST segment/T wave: No ST segment elevation or depression. QTc: 459 Discharge Plan Discharge Clinical Impression: Syncope and collapse, Head injury Patient Disposition: Home, Self-Care Condition: Stable Instructions: Syncope (ED), Head Injury (DC) Additional Instructions: As we discussed, please come back to the ER right away if you have any more fainting spells, dizzy spells, or any other much convulsions or seizure like activity, or if you have any other problems. Please continue on your regular medications. Stay hydrated and drink plenty of fluids. Eat a healthy diet. Please recheck with your regular doctor within 1 week to have recheck labs and re-evaluation. Prescriptions: No Action calcium citrate malate-vit D3 500-200 mg-unit tablet 3 tab PO DAILY vitamin M26-uhser acid 1,000-400 mcg tablet, sublingual 1 tab sublingual DAILY Follow Up/Referrals: Chinyere Pulido PA [Primary Care Provider] - Stand Alone Forms: [employer] Info Instructions
[2023-12-29 19:29] VITALS: BP 140/80; PULSE 92; RESP 16; TEMP 36.9; O2SAT 99; BMI 31.6
--- NOTE | 2023-12-29 19:38 | CRLHL7_ITS ---
For Patients: As a result of the Century Cures Act, medical imaging exams and procedure reports are released immediately into your electronic medical record. You may view this report before your referring provider. If you have questions, please contact your health care provider. Indication: Seizure versus syncope. Head trauma. Technique: CT of the brain was performed without intravenous contrast. Comparison: None relevant available at this institution. Findings: No acute blurring of the marti-white differentiation. There is no intracranial hemorrhage. The ventricles are proportionate to the cerebral sulci. The 4th ventricle is midline. Basal cisterns appear patent. No abnormal extra-axial fluid collection identified. Suggestion of slightly low-lying cerebellar tonsils. There is no intracranial mass, mass effect or midline shift identified. No depressed calvarial fracture. Impression: No acute intracranial process. Please note that all CT scans at this facility use dose modulation, iterative reconstruction, and/or weight-based dosing when appropriate to reduce radiation dose to as low as reasonably achievable. Dictated by Grady Quijano MD @ 12/29/2023 8:48:08 PM (Electronically Signed)
[2023-12-29] MEDS: LACTATED RINGERS 1000 ML IV (19:54)
[2023-12-29 19:59] LABS: Basophils Absolute Auto 0.04 K/uL (0.00-0.30); Basophils Percent Auto 0.6 % (0.0-3.0); Eosinophils Absolute Auto 0.06 K/uL (0.00-0.50); Hematocrit 34.8 % (33.0-51.0); Hemoglobin* 11.2 gm/dL (12.0-16.0); Lymphocytes Percent Auto 39.9 % (20-44); Mean Corpuscular HGB Conc 32 gm/dL (32-36); Mean Corpuscular Hemoglobin 27 pg (26-34); Mean Corpuscular Volume 83 fL (80-100); Monocytes Percent Auto 10.1 % (0.0-11.0); Neutrophils Absolute Auto 3.03 K/uL (1.7-7.0); Neutrophils Percent Auto 48.4 % (42.0-72.0); Platelet Count* 321 K/uL (140-440); RDW Coefficient of Variation % 12.6 % (11.5-15.5); Red Blood Count 4.22 m/uL (4.00-5.20); White Blood Count* 6.26 K/uL (4.50-11.00)
[2023-12-29 20:05] LABS: Slide Review Reflex No
[2023-12-29 20:16] LABS: Chloride* 107 mmol/L (96-114); Potassium* 3.6 mmol/L (3.6-5.1); Sodium* 138 mmol/L (135-149)
[2023-12-29 20:19] LABS: Anion Gap 9 mEq/L (7-15); Blood Urea Nitrogen* 11 mg/dL (5-24); Carbon Dioxide* 22 mmol/L (20-32); Creatinine* 0.7 mg/dL (0.5-1.5); Est. Creatinine Clearance* 109.59; Estimated Glomerular Filt Rate 122 ml/min
[2023-12-29 20:20] LABS: Calcium* 8.8 mg/dL (8.4-10.6); Glucose* 99 mg/dL (60-115)
[2023-12-29 20:26] LABS: HCG Qualitative Serum* Negative (Negative)
[2023-12-29 20:34] LABS: Troponin I* < 0.01 ng/mL (0.01-0.04)
[2023-12-29 20:36] LABS: Appearance Urine Clear (Clear); Bilirubin Urine Negative (Negative); Blood Urine Negative (Negative); Color Urine Yellow (Yellow); Glucose Urine Negative (Negative); Ketones Urine Negative (Negative); Leukocyte Esterase Urine Trace (Negative); Nitrite Urine Negative (Negative); Protein Urine Negative (Negative); Specific Gravity Urine 1.025 (1.000-1.030); Urobilinogen Urine 0.2 (0.2-1.0)
[2023-12-29 20:58] LABS: Bacteria Urine Moderate; Squamous Epithelial Cell Urine Few (None-Few)
--- NOTE | 2024-01-06 08:09 | ED_ITS ---
HPI - General Adult General Chief complaint: Unspecified Complaint, Adult Stated complaint: fainted on MED/Surg floor Time Seen by Provider: 12/29/23 19:20 History of Present Illness HPI narrative: This note is it an addendum to the patient's recent ER visit. Patient was seen for an episode of syncope/convulsive syncope. Urinalysis in the ER showed scant bacteriuria, 2-5 red cells, 2-5 white cells. Negative nitrite. Urine culture came back growing E coli. I contacted the patient. She actually says she is having mild headache intermittently but otherwise no symptoms. No urinary symptoms. Based on urine culture though, we will treat her with a short course of antibiotics to treat this E coli. Prescription for cephalexin 500 b.i.d. for 5 days sent to her pharmacy at [facility]. She will pick it up today. She will contact us if she has any problems or other concerns. Clinical impression 1. UTI-E coli Related Data Home Medications ?Medication ?Instructions ?Recorded ?Confirmed calcium citrate malate-vitamin D3 3 tab PO DAILY 08/17/23 10/21/23 500 mg-200 unit tablet vitamin B12 1,000 mcg-folic acid 1 tab sublingual DAILY 08/17/23 10/21/23 400 mcg sublingual tablet Previous Rx's ?Medication ?Instructions ?Recorded cephalexin 500 mg capsule 500 mg PO BID #10 caps 01/06/24 Allergies Allergy/AdvReac Type Severity Reaction Status Date / Time adhesive Allergy Mild Rash Verified 10/21/23 15:06 ibuprofen Allergy Unknown Verified 10/21/23 15:06 NSAIDS (Non-Steroidal Allergy Unknown Unknown Verified 10/21/23 15:06 Anti-Inflamma [facility] Medical History (Updated 12/29/23 @ 21:07 by Shawn Araujo MD) (normal spontaneous vaginal delivery) (08/19/23) ?O80 - Encounter for full-term uncomplicated delivery (ICD-10) Fourth degree laceration of perineum during delivery, (08/19/23) ?O70.3 - Fourth degree perineal laceration during delivery (ICD-10) Vitamin D deficiency ?E55.9 - Vitamin D deficiency, unspecified (ICD-10) Wernicke encephalopathy (06/22/19) ?E51.2 - Wernicke's encephalopathy (ICD-10) Thiamine deficiency ?E51.9 - Thiamine deficiency, unspecified (ICD-10) Surgical History (Updated 10/16/23 @ 10:27 by Xiomara Fraser) History of esophageal dilatation (2019) ?Z98.890 - Other specified postprocedural states (ICD-10) 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) ?Z98.84 - Bariatric surgery status (ICD-10) History of tracheostomy ?Z98.890 - Other specified postprocedural states (ICD-10) History of Francesca fundoplication ?Z98.890 - Other specified postprocedural states (ICD-10) History of lipoma ?Z86.018 - Personal history of other benign neoplasm (ICD-10) History of foot surgery (09/29/12) ?Z98.890 - Other specified postprocedural states (ICD-10) Hx laparoscopic cholecystectomy ?Z90.49 - Acquired absence of other specified parts of digestive tract (ICD- 10) Social History What is your current living situation?: I presently have a place to live Problems where you live: no known problems In the past 12 months, utilities in danger of being shut off: no In past 12 months, lack of transportation kept you from medical appts, meetings, work, or getting things needed for daily living: no In the past 12 mos, have been you worried that your food would run out before you had money to buy more?: never true In the past 12 mos, the food you bought just didn't last and you didn't have money to buy more?: never true Smoking Status: Never smoker How often does anyone, including family, friends and others, physically hurt you : never How often does anyone, including family, friends and others, insult or talk down to you: never How often does anyone, including family, friends and others, threaten you with harm: never How often does anyone, including family, friends and others, scream or curse at you: never Course Vital Signs Vital signs: Initial Vital Signs Temperature 98.5 F 12/29/23 19:29 Temperature Source Temporal Artery Scan 12/29/23 19:29 Pulse Rate 92 12/29/23 19:29 Pulse Rhythm Regular 12/29/23 19:29 Respiratory Rate 16 12/29/23 19:29 Blood Pressure 140/80 H 12/29/23 19:29 Blood Pressure Mean 100 12/29/23 19:29 Blood Pressure Position Semi-Fowlers 12/29/23 19:29 Pulse Oximetry 99 12/29/23 19:29 Oxygen Delivery Method Room Air 12/29/23 19:29 Vital Signs Temperature 98.5 F 12/29/23 19:29 Pulse Rate 92 12/29/23 19:29 Respiratory Rate 16 12/29/23 19:29 Blood Pressure 140/80 H 12/29/23 19:29 Pulse Oximetry 99 12/29/23 19:29 Oxygen Delivery Method Room Air 12/29/23 19:29 Temperature 98.5 F 12/29/23 19:29 Pulse Rate 92 12/29/23 19:29 Respiratory Rate 16 12/29/23 19:29 Blood Pressure 140/80 H 12/29/23 19:29 Pulse Oximetry 99 12/29/23 19:29 Oxygen Delivery Method Room Air 12/29/23 19:29 Medications Administered Medications: Discontinued Medications Generic Name Dose Route Start Last Admin Trade Name Sandrita PRN Reason Stop Dose Admin Lactated Ringer's 1,000 ml 12/29/23 19:38 12/29/23 19:54 Lactated Ringers 1000 Ml IV 12/29/23 19:39 1,000 ml ONCE ONE Administration Medical Decision Making Lab Data Labs: Lab Results 12/29/23 12/29/23 Range/Units 19:50 20:20 WBC 6.26 (4.50-11.00) K/uL RBC 4.22 (4.00-5.20) m/uL Hgb 11.2 L (12.0-16.0) gm/dL Hct 34.8 (33.0-51.0) % MCV 83 (80-100) fL MCH 27 (26-34) pg MCHC 32 (32-36) gm/dL RDW Coeff of Virgen 12.6 (11.5-15.5) % Plt Count 321 (140-440) K/uL Neut % (Auto) 48.4 (42.0-72.0) % Lymph % (Auto) 39.9 (20-44) % Clinch % (Auto) 10.1 (0.0-11.0) % Eos % (Auto) 1.0 (0.0-7.0) % Baso % (Auto) 0.6 (0.0-3.0) % Neut # (Auto) 3.03 (1.7-7.0) K/uL Lymph # (Auto) 2.50 (0.90-2.90) K/uL Clinch # (Auto) 0.60 (0.00-0.90) K/UL Eos # (Auto) 0.06 (0.00-0.50) K/uL Baso # (Auto) 0.04 (0.00-0.30) K/uL Abs Immat Gran (auto) 0.00 (0.00-0.30) K/uL Imm/Tot Granulo (auto) 0.0 % Sodium 138 (135-149) mmol/L Potassium 3.6 (3.6-5.1) mmol/L Chloride 107 (96-114) mmol/L Carbon Dioxide 22 (20-32) mmol/L Anion Gap 9 (7-15) mEq/L BUN 11 (5-24) mg/dL Creatinine 0.7 (0.5-1.5) mg/dL Estimated Creat Clear 109.59 Estimated GFR 122 ml/min Glucose 99 (60-115) mg/dL Calcium 8.8 (8.4-10.6) mg/dL Troponin I < 0.01 L (0.01-0.04) ng/mL HCG, Qual Negative (Negative) Urine Color Yellow (Yellow) Urine Appearance Clear (Clear) Urine pH 6.0 (5.0-8.5) Ur Specific Range 1.025 (1.000-1.030) Urine Protein Negative (Negative) Urine Glucose (UA) Negative (Negative) Urine Ketones Negative (Negative) Urine Blood Negative (Negative) Urine Nitrite Negative (Negative) Urine Bilirubin Negative (Negative) Urine Urobilinogen 0.2 (0.2-1.0) Ur Leukocyte Esterase Trace A (Negative) Urine RBC 2-5 A (0-2) Urine WBC 2-5 (0-5) Ur Squamous Epith Cells Few (None-Few) Urine Bacteria Moderate A (None) Discharge Plan Discharge Clinical Impression: Syncope and collapse, Head injury Patient Disposition: Home, Self-Care Condition: Stable Instructions: Syncope (ED), Head Injury (DC) Additional Instructions: As we discussed, please come back to the ER right away if you have any more fainting spells, dizzy spells, or any other much convulsions or seizure like activity, or if you have any other problems. Please continue on your regular medications. Stay hydrated and drink plenty of fluids. Eat a healthy diet. Please recheck with your regular doctor within 1 week to have recheck labs and re-evaluation. Prescriptions: New cephalexin 500 mg capsule 500 mg PO BID Qty: 10 0RF No Action calcium citrate malate-vit D3 500-200 mg-unit tablet 3 tab PO DAILY vitamin V77-[id number] acid 1,000-400 mcg tablet, sublingual 1 tab sublingual DAILY Follow Up/Referrals: Chinyere Pulido PA [Primary Care Provider] - Stand Alone Forms: [employer] Info Instructions
== END 2023-12-29 21:26 | disposition home or self-care (01) ==
PROVIDERS: Emergency Provider Emergency Medicine; PCP Physician Assistant
DX: R55 Syncope and collapse (principal); S09.90XA Unspecified injury of head, initial encounter; W19.XXXA Unspecified fall, initial encounter
CPT/HCPCS: 36415; 70450; 80048; 81001; 84484; 84703; 85025; 87086; 87186; 93005; 99283; 99284; J7120